=== PATIENT | female | born 1985 | race Caucasian/White ===

== ENCOUNTER 2017-10-27 10:04 | Emergency (ER) | payer MEDICAID, OTHER ==
[~2017-10-27] VITALS: Ht 172.7 cm; Wt 85.0 kg
[2017-10-27 10:06] VITALS: BP 131/76; PULSE 87; RESP 17; TEMP 99.2; O2SAT 100
--- NOTE | 2017-10-27 10:27 | PD ---
HPI Chief Complaint: Related Problem Time Seen by Provider: 10:26 Travel History International Travel<30 days: No Contact w/Intl Traveler<30days: No Traveled to known affect area: No History of Present Illness HPI 32-year-old female currently 6-8 weeks presents to the emergency department with approximately 1 week history of feeling clammy and chills for the past week. Patient has had nausea and vomiting intermittently as well during that time. Patient denies significant high fevers, cough, shortness of breath, or upper respiratory symptoms. Patient states she threw up twice when she went to work this morning which is why she was sent here for evaluation. Patient denies significant abdominal pain, urinary symptoms, or vaginal bleeding or discharge. Patient has had 3 children prior to this . She states she has had difficulty with nausea and vomiting with previous pregnancies but not the clammy feeling. She is allergic to penicillin. PFSH Past Medical History Cerebrovascular Accident: No Diabetes: No Immune Disorder: No Immunizations Current: No Myocardial Infarction: No ?: LMP: 09/22/17 : 1 Para: 1 Social History Alcohol Use: No Tobacco Use: Yes (5-6 cigarettes) Substance Use: No Allergies-Medications (Allergen,Severity, Reaction): Coded Allergies: penicillin G (Unverified Allergy, Intermediate, 10/27/17) RASH Reported Meds & Prescriptions Reported Meds & Active Scripts Active No Active Prescriptions or Reported Medications Review of Systems Except as stated in HPI: all other systems reviewed are Neg General / Constitutional: Positive: Chills, No: Fever Eyes: No: Visual changes HENT: No: Headaches Cardiovascular: No: Chest Pain or Discomfort Respiratory: No: Shortness of Breath Gastrointestinal: Positive: Nausea, Vomiting, No: Diarrhea, Abdominal Pain Genitourinary: No: Urgency, Frequency, Dysuria, Pelvic Pain, Flank Pain, Vaginal Bleeding Musculoskeletal: No: Pain Skin: No Rash Neurologic: No: Weakness Psychiatric: No: Depression Endocrine: No: Polydipsia Hematologic/Lymphatic: No: Easy Bruising Physical Exam Narrative GENERAL: Patient appears emotional but otherwise no acute distress. SKIN: Warm and dry. Normal color. Normal turgor. HEAD: Atraumatic. Normocephalic. EYES: Pupils equal and round. No scleral icterus. No injection or drainage. ENT: No nasal bleeding or discharge. Mucous membranes pink and moist. Pharynx is clear. Airway is patent NECK: Trachea midline. Supple and nontender CARDIOVASCULAR: Regular rate and rhythm. No murmurs gallops or rubs. RESPIRATORY: No accessory muscle use. Clear to auscultation. Breath sounds equal bilaterally. GASTROINTESTINAL: Abdomen soft, non-tender, nondistended. Hepatic and splenic margins not palpable. No CVA tenderness. MUSCULOSKELETAL: Extremities without clubbing, cyanosis, or edema. No obvious deformities. NEUROLOGICAL: Awake and alert. No obvious cranial nerve deficits. Motor grossly within normal limits. Five out of 5 muscle strength in the arms and legs. Normal speech. PSYCHIATRIC: Appropriate mood and affect; insight and judgment normal. Data Data Last Documented VS Vital Signs Date Time Temp Pulse Resp B/P (MAP) Pulse Ox O2 Delivery O2 Flow Rate FiO2 10/27/17 10:06 99.2 87 17 131/76 (94) 100 Orders Orders Complete Blood Count With Diff (10/27/17 10:31) Basic Metabolic Panel (Bmp) (10/27/17 10:31) Urinalysis - C+S If Indicated (10/27/17 10:31) Ondansetron Odt (Zofran Odt) (10/27/17 10:45) Influenzae A/B Antigen (10/27/17 10:31) Labs Laboratory Tests Test 10/27/17 10:40 10/27/17 10:45 White Blood Count 8.2 TH/MM3 Red Blood Count 4.22 MIL/MM3 Hemoglobin 13.8 GM/DL Hematocrit 39.9 % Mean Corpuscular Volume 94.5 FL Mean Corpuscular Hemoglobin 32.8 PG Mean Corpuscular Hemoglobin Concent 34.7 % Red Cell Distribution Width 12.3 % Platelet Count 217 TH/MM3 Mean Platelet Volume 8.2 FL Neutrophils (%) (Auto) 70.9 % Lymphocytes (%) (Auto) 24.5 % Monocytes (%) (Auto) 3.9 % Eosinophils (%) (Auto) 0.3 % Basophils (%) (Auto) 0.4 % Neutrophils # (Auto) 5.8 TH/MM3 Lymphocytes # (Auto) 2.0 TH/MM3 Monocytes # (Auto) 0.3 TH/MM3 Eosinophils # (Auto) 0.0 TH/MM3 Basophils # (Auto) 0.0 TH/MM3 CBC Comment DIFF FINAL Differential Comment Blood Urea Nitrogen 7 MG/DL Creatinine 0.53 MG/DL Random Glucose 100 MG/DL Calcium Level 8.5 MG/DL Sodium Level 136 MEQ/L Potassium Level 4.1 MEQ/L Chloride Level 106 MEQ/L Carbon Dioxide Level 25.1 MEQ/L Anion Gap 5 MEQ/L Estimat Glomerular Filtration Rate 134 ML/MIN Urine Color YELLOW Urine Turbidity CLEAR Urine pH 7.0 Urine Specific [place] 1.022 Urine Protein TRACE mg/dL Urine Glucose (UA) NEG mg/dL Urine Ketones NEG mg/dL Urine Occult Blood NEG Urine Nitrite NEG Urine Bilirubin NEG Urine Urobilinogen LESS THAN 2.0 MG/DL Urine Leukocyte Esterase MOD Urine RBC 1 /hpf Urine WBC 2 /hpf Urine Squamous Epithelial Cells 2 /hpf Urine Bacteria RARE /hpf Urine Mucus FEW /lpf Microscopic Urinalysis Comment CULT NOT INDICATED MDM Medical Decision Making Medical Screen Exam Complete: Yes Emergency Medical Condition: Yes Differential Diagnosis Febrile illness. Influenza. . Hyperemesis gravidarum. Narrative Course Patient is medically stable at time of exam. Labs ordered including CBC, CMP, and urinalysis. Rapid influenza is ordered as well. IV access is obtained the patient was given 4 mg Zofran IV as well as 1000 mL normal saline bolus. CBC is unremarkable. CMP is normal. Urinalysis shows no signs of infection. Rapid influenza is negative. Patient will be discharged home with Zofran 4 mg every 6 hours as needed nausea and vomiting. #20. 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 Note to return to work tomorrow was given. Diagnosis Primary Impression: Hyperemesis gravidarum Referrals: [facility] Patient Instructions: General Instructions, Hyperemesis Gravidarum (ED) Additional Instructions: CBC is unremarkable. CMP is normal. Urinalysis shows no signs of infection. Rapid influenza is negative. Patient will be discharged home with Zofran 4 mg every 6 hours as needed nausea and vomiting. #20. 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 Note to return to work tomorrow was given. Med/Other Pt SpecificInfo: Prescription(s) given Scripts Ondansetron (Zofran) 4 Mg Tab 4 MG PO Q6HR Y for NAUSEA OR VOMITING, #20 TAB 0 Refills Prov: Kinsey Bernal MD 10/27/17 Disposition: DISCHARGE HOME Condition: Stable Mario Garcia F. PA Oct 27, 2017 10:27
[2017-10-27] MEDS ORDERED: ONDANSETRON ODT 4 MG TAB PO ONE (10:45)
[2017-10-27 10:58] LABS: AUTOMATED NEUTROPHIL # 5.8 TH/MM3 (1.8-7.7); BASOPHIL % 0.4 % (0.0-2.0); EOSINOPHIL % 0.3 % (0.0-4.0); HEMATOCRIT 39.9 % (35.0-46.0); HEMOGLOBIN 13.8 GM/DL (11.6-15.3); LYMPH % 24.5 % (9.0-44.0); MEAN CELL VOLUME 94.5 FL (80.0-100.0); MEAN CORPUSCULAR HEMOGLOBIN 32.8 PG (27.0-34.0); MEAN CORPUSCULAR HGB CONC 34.7 % (32.0-36.0); MEAN PLATELET VOLUME 8.2 FL (7.0-11.0); MONO % 3.9 % (0.0-8.0); MONOCYTE # 0.3 TH/MM3 (0-0.9); NEUT % 70.9 % (16.0-70.0); PLATELET COUNT 217 TH/MM3 (150-450); RED BLOOD COUNT 4.22 MIL/MM3 (4.00-5.30); RED CELL DISTRIBUTION WIDTH 12.3 % (11.6-17.2); WHITE BLOOD COUNT 8.2 TH/MM3 (4.0-11.0)
[2017-10-27 11:16] LABS: BICARBONATE 25.1 MEQ/L (21.0-32.0); CALCIUM 8.5 MG/DL (8.5-10.1); CREATININE 0.53 MG/DL (0.50-1.00)
[2017-10-27 11:22] LABS: BACTERIA, URINE RARE /hpf; BILIRUBIN, URINE NEG (NEG); BLOOD, URINE NEG (NEG); GLUCOSE,URINE NEG (NEG); KETONE, URINE NEG (NEG); MUCUS URINE FEW /lpf (OCC); NITRITE,URINE NEG (NEG); SQUAMOUS EPITHELIAL CELL URINE 2 /hpf (0-5); URINE COLOR YELLOW (YELLW/STRAW); URINE LEUKOCYTE ESTERASE MOD (NEG)
[2017-10-27] MEDS ORDERED: ZOFR4TAB PO (11:48)
== END 2017-10-27 12:05 | disposition home or self-care (01) ==
LOC: NEPD 10:04
DX: O21.0 Mild hyperemesis gravidarum (principal); O99.331 Smoking (tobacco) complicating pregnancy, first trimester; F17.210 Nicotine dependence, cigarettes, uncomplicated; Z3A.01 Less than 8 weeks gestation of pregnancy
CPT/HCPCS: 80048; 81001; 85025; 87804; 99283

== ENCOUNTER 2017-11-06 15:20 | Emergency (ER) | payer MEDICAID, OTHER ==
[~2017-11-06] VITALS: Ht 172.7 cm; Wt 86.5 kg
[~2017-11-06 15:20] MED LIST: ZOFR4TAB PO
[2017-11-06 15:23] VITALS: BP 120/68; PULSE 86; RESP 18; TEMP 98.8; O2SAT 100
[2017-11-06] MEDS ORDERED: ZOFR4TAB PO (15:49)
[2017-11-06] MEDS ORDERED: DOXY10TA PO (15:49)
--- NOTE | 2017-11-06 15:54 | PD ---
HPI Chief Complaint: Medication Refill Request Time Seen by Provider: 15:47 Travel History International Travel<30 days: No Contact w/Intl Traveler<30days: No Traveled to known affect area: No History of Present Illness HPI 33-year-old female who reports that she is 11 weeks estimated gestational age based on last menstrual period. She presents requesting medication refill. She has a history of nausea and vomiting in and has historically use Zofran to help with this. She ran out today and this is simply requesting a refill of the Zofran. She is never tried any other antiemetic besides Zofran. She reports that her first appointment with her material specialist is in 6 days. She has no acute medical complaints at this time. [facility] Past Medical History Medical History: Denies Significant Hx Cerebrovascular Accident: No Diabetes: No Diminished Hearing: No Immune Disorder: No Immunizations Current: No Myocardial Infarction: No ?: : 4 Para: 3 Miscarriage: 0 : 0 Past Surgical History Surgical History: No Previous Surgery Social History Alcohol Use: No Tobacco Use: Yes (quit smoking 3 days ago ) Substance Use: No (Recovering addict Hx:drug addiction ) Allergies-Medications (Allergen,Severity, Reaction): Coded Allergies: penicillin G (Unverified Allergy, Intermediate, 11/06/17) RASH Reported Meds & Prescriptions Reported Meds & Active Scripts Active Zofran (Ondansetron HCl) 4 Mg Tab 4 Mg PO Q6HR PRN Diclegis (Doxylamine-Pyridoxine) 10-10 Mg Tab 2 Tab PO BED TIME Zofran (Ondansetron HCl) 4 Mg Tab 4 Mg PO Q6HR PRN Review of Systems General / Constitutional: No: Fever, Chills Cardiovascular: No: Chest Pain or Discomfort Respiratory: No: Shortness of Breath Gastrointestinal: Positive: Nausea, No: Diarrhea, Abdominal Pain Genitourinary: No: Dysuria Physical Exam Narrative GENERAL: Well-developed well-nourished female in no acute distress SKIN: Warm and dry. HEAD: Atraumatic. Normocephalic. EYES: Pupils equal and round. No scleral icterus. No injection or drainage. ENT: No nasal bleeding or discharge. Mucous membranes pink and moist. NECK: Trachea midline. No JVD. CARDIOVASCULAR: Regular rate and rhythm. No murmur appreciated. RESPIRATORY: No accessory muscle use. Clear to auscultation. Breath sounds equal bilaterally. GASTROINTESTINAL: Abdomen soft, non-tender, nondistended. Hepatic and splenic margins not palpable. Data Data Last Documented VS Vital Signs Date Time Temp Pulse Resp B/P (MAP) Pulse Ox O2 Delivery O2 Flow Rate FiO2 11/06/17 15:23 98.8 86 18 120/68 (85) 100 Room Air MDM Medical Decision Making Medical Screen Exam Complete: Yes Emergency Medical Condition: Yes Medical Record Reviewed: Yes Differential Diagnosis Medication refill, nausea and vomiting in , hyperemesis gravidarum Narrative Course The patient will be prescribed diclegis for her pain as he induced nausea and vomiting. She will be given Zofran as a backup in case she is unable to get the prescription filled and I did discuss the risks associated with Zofran use in . She is agreeable to this plan. She understands to follow up with her material specialist. She is stable for discharge. Diagnosis Primary Impression: Medication refill Additional Instructions: Medication as needed. Follow-up with your material specialist. Return for any emergent medical conditions. Med/Other Pt SpecificInfo: Prescription(s) given Scripts Ondansetron (Zofran) 4 Mg Tab 4 MG PO Q6HR Y for NAUSEA OR VOMITING, #20 TAB 0 Refills Prov: Dedrick Bae MD 11/06/17 Doxylamine-Pyridoxine (Diclegis) 10-10 Mg Tab 2 TAB PO BED TIME, #30 Prov: Dedrick Bae MD 11/06/17 Disposition: 01 DISCHARGE HOME Condition: Stable Joshua Marie Nov 06, 2017 15:54
== END 2017-11-06 16:05 | disposition home or self-care (01) ==
LOC: NEPK 15:20
DX: O26.891 Other specified pregnancy related conditions, first trimester (principal); Z76.0 Encounter for issue of repeat prescription
CPT/HCPCS: 99281